=== PATIENT | female | born 1950 | race Hispanic/Latino ===

== ENCOUNTER 2021-11-06 08:38 | Outpatient (CLI) | payer MEDICARE | END 2021-11-06 08:39 | disposition home or self-care (01) | LOC: CSHMAMMO 08:38 | PROVIDERS: ATTEND Family Medicine | DX: Z53.9 Procedure and treatment not carried out, unspecified reason (principal) | CPT/HCPCS: 77063; 77067 ==

== ENCOUNTER 2024-07-01 18:56 | Emergency (ER) | payer MEDICARE ==
[2024-07-01] MEDS ORDERED: Cyclobenzaprine 10 MG TAB ONE (19:47)
[2024-07-01] MEDS ORDERED: predniSONE 20 MG TAB ONE (19:47)
[2024-07-01] MEDS ORDERED: Ketorolac Tromethamine 30 MG (1 mL) VIAL ONE (19:47)
== END 2024-07-01 20:01 | disposition home or self-care (01) ==
LOC: CSHERS 18:56
DX: S39.012A Strain of muscle, fascia and tendon of lower back, initial encounter (principal); M54.42 Lumbago with sciatica, left side; I10 Essential (primary) hypertension; X50.0XXA Overexertion from strenuous movement or load, initial encounter
CPT/HCPCS: 96372; 99283; J1885; J7512